=== PATIENT | female | born 1940 | race Caucasian/White ===

== ENCOUNTER 2017-12-13 07:01 | Day surgery (SDC) | payer OTHER, MEDICARE ==
[2017-12-11 09:58] VITALS: BMI 25.8
[2017-12-13] MEDS ORDERED: MIDAZOLAM HCL 2 MG/2 ML SINGLE DOSE VIAL ONE ×2 (07:47)
[2017-12-13] MEDS ORDERED: PROPOFOL 20 ML ONE (07:47)
[2017-12-13] MEDS ORDERED: ROPIVACAINE HCL 0.5% 30ML VIAL ONE (08:01)
[2017-12-13] MEDS ORDERED: LIDOCAINE 1% P/F 10 MG/ML VIAL ONE (08:04)
[2017-12-13] MEDS ORDERED: GUM MASTIC/STORAX/MSAL/ALCOHOL 1 DRP DROPSBTL MC ONE (09:34)
[2017-12-13] MEDS ORDERED: ONDANSETRON 4 MG/2 ML VIAL IVPUSH PRN (10:06)
[2017-12-13] MEDS ORDERED: oxyCODONE HCL 5 MG TABLET PO PRN (10:06)
[2017-12-13] MEDS ORDERED: LACTATED RINGERS SOLUTION 1,000 ML IV SCH (10:15)
[2017-12-13 10:45] VITALS: TEMP 97.9
[2017-12-13 11:49] VITALS: BP 117/51; PULSE 74
--- NOTE | 2017-12-15 09:27 | OP ---
DATE OF OPERATION: 12/13/2017 PREOPERATIVE DIAGNOSIS: Left comminuted displaced intraarticular distal radius fracture. POSTOPERATIVE DIAGNOSIS: Left comminuted displaced intraarticular distal radius fracture. OPERATIVE PROCEDURE: 1. Left open reduction and internal fixation of distal radius fracture with internal fixation of 3 or more fragments. 2. Left brachioradialis tenotomy. SURGEON: Mono Alfonso MD BELT OPERATOR: CESILIA Herrera ANESTHESIA: Regional. COMPLICATIONS: None. ESTIMATED BLOOD LOSS: Minimal. INDICATIONS FOR PROCEDURE: The patient is a 77-year-old female with the above findings, indicated for operative treatment. The risks, benefits, and alternatives were discussed with the patient at length, and proper informed consent was obtained. DESCRIPTION OF PROCEDURE: After proper identification of the patient and the correct operative site, the patient was brought to the operating room and placed supine on the operating table with prominences well padded. Regional anesthesia were given. Left upper extremity was prepped and draped in the usual sterile fashion. Intravenous antibiotics were given. Time-out procedure was performed. Esmarch bandage used to exsanguinate the right upper extremity. Tourniquet inflated to 250 mmHg. A longitudinal incision was made over the volar aspect of the wrist. Incision was taken sharply through the skin. Blunt and sharp dissection was performed through the subcutaneous tissues. Flexor carpi radialis tendon along with the contents of the carpal canal were bluntly and gently retracted in an ulnarward direction for the remainder of the procedure. Pronator quadratus was divided longitudinally. A highly comminuted fracture was noted. Radial styloid fragments were separate, and a brachioradialis tenotomy was necessary in a subperiosteal fashion in order to release this fragment for reduction. Once the fragments were reduced, an Acumed Acu-Loc distal radius plate was placed and secured distally with locking screws and proximal nonlocking screws. This provided secure stable fixation of the fracture, confirmed both palpably, visually, and with radiographic fluoroscopy in multiple planes. Scapholunate interval and distal radioulnar joints were found to be stable. Wound was irrigated with saline and repaired in layers using 4-0 Vicryl and 4-0 Monocryl suture. Steri-Strips and sterile dressings were applied. Splint was placed. The patient was reversed from anesthesia and brought to the recovery room in stable condition. She tolerated the procedure well. Sherwin Velasquez, the veterinary assistant, was integral throughout this procedure. This procedure could not have been performed without a skilled operative veterinary assistant. MONO ALFONSO M.D. [id number]
== END 2017-12-13 11:57 | disposition home or self-care (01) ==
LOC: FASU 07:01
PROVIDERS: ATTEND Orthopaedic Surgery Hand Surgery
PROC: 0LN60ZZ Release Left Lower Arm and Wrist Tendon, Open Approach (ICD-10-PCS; 2017-12-13)
PROC: 0PSJ04Z Reposition Left Radius with Internal Fixation Device, Open Approach (ICD-10-PCS; principal; 2017-12-13 08:48)
DX: S52.532A Colles' fracture of left radius, initial encounter for closed fracture (principal); X58.XXXA Exposure to other specified factors, initial encounter; Y93.9 Activity, unspecified; Y92.9 Unspecified place or not applicable
CPT/HCPCS: 73110-TC-LR-FY; 94760